=== PATIENT | male | born 1955 | race African-American/Black ===

== ENCOUNTER 2018-01-01 22:17 | Emergency (ER) | payer OTHER ==
[~2018-01-01] VITALS: Ht 193 cm; Wt 154.2 kg
[2018-01-01 22:33] VITALS: BP 125/91
[2018-01-01] MEDS ORDERED: DEXAMETHASONE SOD PHOSPHATE 10 MG/ML VIAL ONE (23:19)
[2018-01-01] MEDS ORDERED: KETOROLAC TROMETHAMINE INJ 30 MG/ML VIAL ONE (23:19)
[2018-01-01] MEDS: DEXAMETHASONE SOD PHOSPHATE 4 MG/ML VIAL IM ONE (23:26)
[2018-01-01] MEDS: KETOROLAC TROMETHAMINE INJ 60 MG/2 ML VIAL IM ONE (23:27)
== END 2018-01-01 23:31 | disposition home or self-care (01) ==
LOC: ER 22:18
DX: M54.31 Sciatica, right side (principal)
CPT/HCPCS: 96372 ×2; 99284; A4606; J1100; J1885; Z7610